=== PATIENT | male | born 1955 | race African-American/Black ===

== ENCOUNTER 2017-10-08 09:31 | Outpatient (CLI) | payer OTHER ==
--- NOTE | 2017-10-08 12:23 | RAD ---
BARIUM SWALLOW: Date: 10-08-17 History: Dysphagia. FINDINGS: There is a mild area of relative narrowing of the distal esophagus at the level of the gastroesophage al junction. There is mild esophageal dilatation proximal to this. However, when the patient ingested a barium tablet it promptly traverses this region. Mild distal tertiary contractions are noted. There is prominent gastroesophageal reflux elicited during this examination, which extended from the proximal to the proximal esophagus at the level of the thoracic inlet. Technical Support Professional imaging demonstrates post-operative hardware overlying the cervical spine and bilateral shoulde rs. No radiographic evidence of acute cardiopulmonary disease. IMPRESSION: 1. Marked gastroesophageal reflux was seen extending from the stomach through the proximal thoracic e sophagus at the level of the thoracic inlet. 2. Mild persistent focal area of narrowing at the gastroesophageal junction suggests mild stricture. However, the barium tablet traverses this area without delay. 3. Scattered disc tertiary contractions. POS: [facility]
== END 2017-10-08 09:32 | disposition home or self-care (01) ==
LOC: RAD 09:31
PROVIDERS: ATTEND Internal Medicine Gastroenterology
DX: R07.9 Chest pain, unspecified (principal); R13.10 Dysphagia, unspecified; K21.9 Gastro-esophageal reflux disease without esophagitis; K22.8 Other specified diseases of esophagus
CPT/HCPCS: 74220

== ENCOUNTER 2018-12-02 08:18 | Outpatient (CLI) | payer OTHER ==
--- NOTE | 2018-12-02 09:33 | MRI ---
MRI LEFT ANKLE: DATE: 12/02/2018. PROVIDED CLINICAL HISTORY: Pain status post injury. FINDINGS: The anterior extensor, medial flexor, perineal, and Achilles tendons demonstrate an intact MR appeara nce. There is increased signal intensity on fluid-sensitive sequences and thickening involving the superfi cial and deep components of the deltoid ligament, compatible with partial tearing. The lateral ankle ligaments appear intact. No focal tibiotalar articular cartilage defect is apparent. Advanced talonavicular degenerative change is seen with prominent osteophyte formation, joint effusio n, and subcortical cyst formation and marrow edema. The middle and posterior subtalar joints appear unremarkable. There is preservation of the majority of the fat signal intensity within the tarsal si nus. The plantar aponeurosis appears unremarkable. The courses of the regional major neurovascular structures appear unremarkable. No focal concerning regional marrow or muscular signal abnormality is evident. IMPRESSION: 1. Partial tearing involving a deltoid ligament. 2. Advanced talonavicular degenerative change. POS: [facility]
== END 2018-12-02 08:19 | disposition home or self-care (01) ==
LOC: MRI 08:18
PROVIDERS: ATTEND Nurse Practitioner Family
DX: S99.912A Unspecified injury of left ankle, initial encounter (principal); S93.402A Sprain of unspecified ligament of left ankle, initial encounter; M19.072 Primary osteoarthritis, left ankle and foot

== ENCOUNTER 2019-04-23 08:26 | Outpatient (CLI) | payer OTHER ==
[2019-04-23 10:00] LABS: #Basophils 0.1 thou/uL (0.0-0.2); #Eosinphils 0.1 thou/uL (0.0-0.7); #Lymphocytes 1.8 thou/uL (1.20-3.40); #Monocytes 0.9 thou/uL (0.11-0.59); #Neutrophils 6.1 thou/uL (1.40-6.50); %Basophils 0.6 % (0.0-1.0); %Eosinophils 1.2 % (0.0-10.0); %Lymphocytes 19.5 % (21.0-51.0); %Monocytes 10.4 % (0.0-10.0); %Neutrophils 68.3 % (42.0-75.0); Hemoglobin 14.8 g/dL (14.0-18.0); Mean Corpuscular HGB CONC 33.4 g/dL (32.0-36.0); Mean Corpuscular Hemoglobin 29.2 pg (27.0-31.0); Mean Corpuscular Volume 87.5 fL (78.0-98.0); Mean Platelet Volume 9.3 fL (7.4-10.4); Platelet Count 191 thou/uL (130-400); RBC Distribution Width 13.1 % (11.5-14.5); Red Blood Cell (RBC) Count 5.07 mill/uL (4.70-6.10)
[2019-04-23 10:05] LABS: INR-International Normal Ratio 1.1; PTT 30.5 SEC (22.9-36.1); Prothrombin Time 13.7 SEC (12.0-14.7)
[2019-04-23 10:19] LABS: ALT (SGPT) 37 U/L (8-55); AST (SGOT) 25 U/L (5-34); Albumin 4.5 g/dL (3.4-4.8); Alkaline Phosphatase 80 U/L (40-110); Anion Gap 12 mmol/L (10-20); BUN (Urea Nitrogen) 14 mg/dL (8.4-25.7); Bilirubin, Total 0.7 mg/dL (0.2-1.2); Calc. Creatinine Clearance 0 mL/min (70-130); Calcium 9.5 mg/dL (7.8-10.44); Carbon Dioxide 28 mmol/L (23-31); Chloride 103 mmol/L (98-107); Estimated GFR-MDRD Greater than 90; Globulin 3.1 g/dL (2.4-3.5); Glucose 83 mg/dL (80-115); Potassium 4.4 mmol/L (3.5-5.1); Protein, Total 7.6 g/dL (5.8-8.1); Sodium 139 mmol/L (136-145)
== END 2019-04-23 08:27 | disposition home or self-care (01) ==
LOC: LABBT 08:26
PROVIDERS: ATTEND Internal Medicine Cardiovascular Disease
DX: Z01.812 Encounter for preprocedural laboratory examination (principal)
CPT/HCPCS: 80053; 85025; 85610; 85730

== ENCOUNTER 2019-04-28 08:21 | Day surgery (SDC) | payer OTHER ==
[2019-04-23 09:19] VITALS: BMI 32.2
== END 2019-04-28 13:55 | disposition home or self-care (01) ==
LOC: CCL 08:21
PROVIDERS: ATTEND Internal Medicine Cardiovascular Disease
PROC: B2111ZZ Fluoroscopy of Multiple Coronary Arteries using Low Osmolar Contrast (ICD-10-PCS; principal; 2019-04-28)
PROC: 4A023N7 Measurement of Cardiac Sampling and Pressure, Left Heart, Percutaneous Approach (ICD-10-PCS; principal; 2019-04-28)
DX: R07.9 Chest pain, unspecified (principal); E78.00 Pure hypercholesterolemia, unspecified; I10 Essential (primary) hypertension; Z88.0 Allergy status to penicillin; Z91.013 Allergy to seafood
CPT/HCPCS: 76942; 93458; 99152; 99153

== ENCOUNTER 2019-04-29 05:48 | Inpatient (IN) | payer OTHER ==
[2019-04-29] MEDS ORDERED: Lidocaine 1% (PF) 30 ML VIAL ONE (07:00)
[2019-04-29] MEDS ORDERED: Fentanyl 100 MCG/2 ML VIAL ONE (07:30)
[2019-04-29] MEDS ORDERED: Midazolam HCl 2 mg/2 ml Vial ONE (07:30)
[2019-04-29] MEDS ORDERED: Nitroglycerin 100MG/250ML BOT 250 ML ONE (07:49)
[2019-04-29] MEDS ORDERED: Nitroglycerin 2% Ointment 1 INCH/1 GM Packet ONE (08:44)
[2019-04-29] MEDS ORDERED: Zolpidem Tartrate 5 MG TAB PO PRN (17:36)
[2019-04-29] MEDS ORDERED: Acetaminophen 325 MG TAB PO PRN (17:36)
[2019-04-29] MEDS ORDERED: Communication Order-Pharmacy FS PRN (17:36)
--- NOTE | 2019-04-29 18:28 | RAD ---
Exam: Chest one view HISTORY:Presurgical evaluation Comparison: None FINDINGS: Lungs: No masses or consolidation. Cardiac silhouette: Normal size Pulmonary vessels: Normal Pleural Spaces: Clear Pneumothorax: None Osseous abnormalities: None of acuity. IMPRESSION: No focal consolidation.
[2019-04-29] MEDS ORDERED: Rosuvastatin 20 MG TAB PO SCH (21:00)
[2019-04-29] MEDS ORDERED: Nitroglycerin 2% Ointment 1 INCH/1 GM Packet TOP SCH (21:00)
--- NOTE | 2019-04-30 00:35 | CON ---
DATE OF CONSULTATION: HISTORY OF PRESENT ILLNESS: This is a pleasant 64-year-old gentleman who works for [employer] as well as [employer], who has been reporting some pressure in the center of his chest with activity that will resolve with rest. He also relates that it occasionally occurs when he is at rest. He also reports some pain that occasionally goes down his left arm and occasionally his right arm. He had a stress test that was equivocal; however, due to strong family history and symptoms suspicious for angina, he underwent cardiac catheterization today showing about a 75% to 80% ostial right coronary stenosis, 40% to 60% distal left main narrowing extending into the proximal circumflex and LAD. There was a small bifurcated ramus branch that appeared to have disease. Left ventricular systolic function was normal. PAST MEDICAL HISTORY: Includes hypertension and mild dyslipidemia with recent adjustment in cholesterol medicines. PAST SURGICAL HISTORY: Includes a cervical spine surgery, bilateral shoulder surgery, left ankle and left knee surgeries. SOCIAL HISTORY: . 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 ALLERGIES: TO SHELLFISH. PHYSICAL EXAMINATION: GENERAL: He is an alert, cooperative gentleman. VITAL SIGNS: Recorded weight of 188 pounds, height of 5 feet 4 inches. NECK: No carotid bruits. LUNGS: Clear to auscultation. CARDIAC: Soft systolic murmur, right upper sternal border. ABDOMEN: Obese, nontender. EXTREMITIES: Multiple scars on his left lower leg with no edema and palpable dorsalis pedis pulses bilaterally. He is left arm dominant with a good Carlos test in the right wrist. PLAN: Plan at this time is for triple-vessel bypass grafting and informed consent has been obtained. Job ID: [id number] [facility]
[2019-04-30] MEDS ORDERED: CEFAZOLIN 2 GM in Premix Bag 1 BAG IVPB SCH (05:15)
[2019-04-30] MEDS ORDERED: Midazolam HCl 2 mg/2 ml Vial ONE (06:31)
[2019-04-30] MEDS ORDERED: Fentanyl 100 MCG/2 ML VIAL ONE (06:31)
[2019-04-30] MEDS ORDERED: Vecuronium 10 MG VIAL ONE ×2 (06:32→13:15)
[2019-04-30] MEDS ORDERED: Dexmedetomidine 200 MCG/2 ML VIAL ONE (06:32)
[2019-04-30] MEDS ORDERED: Midazolam HCl 5 mg/5 ml Vial ONE (06:32)
[2019-04-30] MEDS ORDERED: Heparin 10,000 UNITS/1 ML VIAL 30,000 UNITS in Sodium Chloride 0.9% 1,000 ML FS SCH (07:00)
[2019-04-30] MEDS ORDERED: Albumin 5% 500 ML ONE (07:01)
[2019-04-30] MEDS ORDERED: Levofloxacin 500 mg/D5W 100 ml Premix Bag ONE (07:10)
[2019-04-30] MEDS ORDERED: Clindamycin/D5W 900 mg/50 ml Premix Bag ONE (07:11)
[2019-04-30] MEDS ORDERED: Clindamycin/D5W 900 MG in Premix Bag 1 BAG IVPB SCH (07:30)
[2019-04-30] MEDS ORDERED: Aspirin 81 mg Enteric Coated Tablet PO SCH (09:00)
[2019-04-30] MEDS ORDERED: Heparin 10,000 UNITS/1 ML VIAL ONE (09:16)
[2019-04-30] MEDS ORDERED: PHENYLEPHRINE-NS 100 MCG/ML 10 ML SYRINGE ONE ×2 (09:16→13:15)
[2019-04-30] MEDS ORDERED: Bivalirudin 250 MG VIAL ONE (09:54)
[2019-04-30 12:41] LABS: Actual Bicarbonate (HCO3a) 23.4 mEq/L (22-28); Base Excess (BEa) -2.7 mEq/L (-2.0 to +3.0); CO2 Tension 45.9 mmHg (35.0-45.0); Calcium, Ionized 1.12 mmol/L (1.12-1.30); Carboxyhemoglobin (COHb) 0.3 gm% (0.0-3.0); Hemoglobin (Hb) 11.8 g/dL (14.0-18.0); Potassium - ABG Lab 3.81 mmol/L (3.70-5.30); pH, Arterial 7.33 (7.35-7.45)
[2019-04-30 12:44] LABS: Puncture Site ALINE
[2019-04-30] MEDS ORDERED: Promethazine HCl 25 MG/ML VIAL IM PRN (12:58)
[2019-04-30] MEDS ORDERED: Norepinephrine 8 MG/0.9% NS 250 ML IVPB PRN (12:58)
[2019-04-30] MEDS ORDERED: Post-Op Insulin Drip Protocol IVPB ONE (12:58)
[2019-04-30] MEDS ORDERED: Ondansetron PF 4 MG/2 ML Vial IVP PRN (12:58)
[2019-04-30] MEDS ORDERED: hydrALAZINE 20 MG/ML VIAL SLOW IVP PRN (12:58)
[2019-04-30] MEDS ORDERED: Guaifenesin DM 100-10/5 ML UDCUP PO PRN (12:58)
[2019-04-30] MEDS ORDERED: Magnesium 2 GM/50 ML 2 GM in Premix Bag 1 BAG IVPB SCH (12:58)
[2019-04-30] MEDS ORDERED: Mag-Al 1200 mg/1200 mg/30 ML UDCUP PO PRN (12:58)
[2019-04-30] MEDS ORDERED: Acetaminophen 325 MG TAB PO PRN (12:58)
[2019-04-30] MEDS ORDERED: Nitroglycerin 50 MG/250 ML BOT 250 ML IVPB PRN (12:58)
[2019-04-30] MEDS ORDERED: Hetastarch 6% 500 ML 500 ML IVPB PRN (12:58)
[2019-04-30] MEDS ORDERED: niCARdipine 25 MG in Sodium Chloride 0.9% 250 ML 240 ML IVPB PRN (12:58)
[2019-04-30] MEDS ORDERED: Morphine 2 MG/ML SYRINGE SLOW IVP PRN (12:58)
[2019-04-30] MEDS ORDERED: Bisacodyl 10 MG SUPP PR PRN (12:58)
[2019-04-30] MEDS ORDERED: DOPamine 400 MG/D5W 250 ML 250 ML IVPB PRN (12:58)
[2019-04-30] MEDS ORDERED: Fentanyl 100 MCG/2 ML VIAL SLOW IVP PRN ×2 (12:58)
[2019-04-30 13:14] LABS: #Basophils 0.1 thou/uL (0.0-0.2); #Eosinphils 0.1 thou/uL (0.0-0.7); #Lymphocytes 1.3 thou/uL (1.20-3.40); #Monocytes 1.1 thou/uL (0.11-0.59); #Neutrophils 16.1 thou/uL (1.40-6.50); %Basophils 0.3 % (0.0-1.0); %Eosinophils 0.3 % (0.0-10.0); %Lymphocytes 6.7 % (21.0-51.0); %Monocytes 5.7 % (0.0-10.0); %Neutrophils 86.9 % (42.0-75.0); Hemoglobin 11.3 g/dL (14.0-18.0); Mean Corpuscular HGB CONC 32.7 g/dL (32.0-36.0); Mean Corpuscular Hemoglobin 28.7 pg (27.0-31.0); Mean Corpuscular Volume 87.9 fL (78.0-98.0); Mean Platelet Volume 8.9 fL (7.4-10.4); Platelet Count 121 thou/uL (130-400); Red Blood Cell (RBC) Count 3.93 mill/uL (4.70-6.10); White Blood Cell (WBC) Count 18.5 thou/uL (4.8-10.8)
[2019-04-30] MEDS ORDERED: Ketorolac Tromethamine 30 MG/ML VIAL ONE (13:15)
[2019-04-30] MEDS ORDERED: Papaverine 60 MG/2 ML VIAL ONE (13:15)
[2019-04-30] MEDS ORDERED: Sodium Bicarb 50 MEQ/50 ML VIAL ONE (13:15)
[2019-04-30] MEDS ORDERED: Cardioplegic Soln 1,000 ML BAG ONE (13:15)
[2019-04-30] MEDS ORDERED: Magnesium 5 GM/10 ML VIAL ONE (13:15)
[2019-04-30] MEDS ORDERED: Calcium Chloride 1 GM/10 ML Abboject SYRINGE ONE (13:15)
[2019-04-30] MEDS ORDERED: Protamine Sulfate 250 MG/25 ML VIAL ONE (13:15)
[2019-04-30] MEDS ORDERED: Dexamethasone 20 MG/5 ML VIAL ONE (13:15)
[2019-04-30] MEDS ORDERED: Potassium Chloride 60 MEQ/30 ML VIAL ONE (13:15)
[2019-04-30] MEDS ORDERED: ePHEDrine 50 MG/ML VIAL ONE (13:15)
[2019-04-30] MEDS ORDERED: Heparin 30,000 units/30 ml VIAL ONE (13:15)
[2019-04-30] MEDS ORDERED: Heparin 5,000 UNITS/ML VIAL ONE (13:15)
[2019-04-30] MEDS ORDERED: Aminocaproic Acid 5 GM/20 ML VIAL ONE (13:15)
[2019-04-30] MEDS ORDERED: Nitroglycerin 50 MG/250 ML BOT ONE (13:15)
[2019-04-30] MEDS ORDERED: Mannitol 12.5 GM/50 ML ONE (13:15)
[2019-04-30] MEDS ORDERED: Glycopyrrolate 0.2 MG/ML 5 ML SYRINGE ONE (13:15)
[2019-04-30] MEDS ORDERED: Thrombin 5000 UNITS/5 ML VIAL ONE (13:15)
[2019-04-30] MEDS ORDERED: Ondansetron PF 4 MG/2 ML Vial ONE (13:15)
--- NOTE | 2019-04-30 13:17 | RAD ---
RADIOGRAPH CHEST 1 VIEW: DATE: 04/30/2019 TIME: 12:40 PM HISTORY: 64-year-old male status post open heart surgery COMPARISON: 04/29/2019 FINDINGS: Lung volumes are much lower now. New sternotomy wires. New double media and chest tubes, one with dis david portion overlying left upper lung zone. New right subclavian central line distal tip overlying right atrium. Retrocardiac left lower lobe atelectasis. Left perihilar haziness. Right lung clear. No pneumothorax. No pulmonary edema. IMPRESSION: Immediately status post coronary artery bypass graft surgery.
[2019-04-30 13:24] LABS: INR-International Normal Ratio 1.6; PTT 31.9 SEC (22.9-36.1); Prothrombin Time 19.1 SEC (12.0-14.7)
[2019-04-30] MEDS ORDERED: HUMULIN R 100 UNITS in Sodium Chloride 0.9% 100 ML IVPB SCH (13:32)
[2019-04-30] MEDS ORDERED: Dextrose 50% Abboject 50 ML SYRINGE SLOW IVP PRN (13:32)
[2019-04-30] MEDS ORDERED: Dextrose 5% in Water 1,000 ML IV PRN (13:32)
[2019-04-30 13:35] LABS: Anion Gap 11 mmol/L (10-20); BUN (Urea Nitrogen) 11 mg/dL (8.4-25.7); Calc. Creatinine Clearance 127 mL/min (70-130); Calcium 7.8 mg/dL (7.8-10.44); Carbon Dioxide 23 mmol/L (23-31); Chloride 107 mmol/L (98-107); Estimated GFR-MDRD Greater than 90; Glucose 126 mg/dL (80-115); Potassium 3.9 mmol/L (3.5-5.1); Sodium 137 mmol/L (136-145)
[2019-04-30] MEDS: Lactated Ringer's 1,000 ML IV SCH (13:44)
[2019-04-30] MEDS: Potassium Chloride 20 MEQ/100 ML PREMIX BAG IVPB PRN (13:44)
[2019-04-30] MEDS: Ketorolac Tromethamine 30 MG/ML VIAL IVP SCH ×3 (13:46→23:45)
[2019-04-30] MEDS: Insulin Regular 300 UNITS/3 ML VIAL SC PRN ×2 (13:52→17:14)
[2019-04-30] MEDS: Clindamycin/D5W 900 MG in Premix Bag 1 BAG IVPB SCH ×2 (14:02→20:30)
--- NOTE | 2019-04-30 14:37 | CON ---
DATE OF CONSULTATION: 04/30/2019 REASON FOR CONSULTATION: Difficult Childers catheter placement, history of urethral stricture. PRIMARY UROLOGIST: Dr. Freeman. HISTORY OF PRESENT ILLNESS: Mr. Trejo is a 64-year-old male currently on the operating room table about to undergo cardiac cath by Dr. Newby. Catheter attempt was placed by nursing staff, however, unable to pass with tiny amounts of blood with catheter placement. Dr. Newby was unable to pass a subsequent Childers. Therefore , urologic consultation was obtained. His chart reviewed, as he is currently intubated. patient followed by Dr. Freeman, he underwent prior urethral stricture dilatation, found to have unremarkable bladder, moderate BPH. Underwent DVIU with laser. Currently, the patient about to undergo cardiac cath. PAST MEDICAL HISTORY: Hypertension and dyslipidemia. PAST SURGICAL HISTORY: Cysto DVIU by Dr. Freeman, T-spine surgery, bilateral shoulder surgery, left ankle and left knee surgery. 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 ALLERGIES: ALLERGIC TO SHELLFISH AND AMOXICILLIN. MEDICATIONS: Include clindamycin and cefazolin. He was provided Levaquin, Nitro-Bid, Crestor, and Ambien. PHYSICAL EXAMINATION: VITAL SIGNS: Stable. GENERAL: The patient currently intubated. ABDOMEN: Soft, nontender, and nondistended. : Uncircumcised. Testes are descended, otherwise unremarkable. He is currently prepped and draped. As he has a history of urethral stricture, inability of Childers catheter placement by nursing staff, I did perform a flexible cystoscopy at bedside. DESCRIPTION OF PROCEDURE: The patient's genital area was formally prepped and draped. Flexible cystoscope was passed. There was some irritation of the proximal penile urethra, likely due to recent Childers catheter attempt. There was no gross stricture recurrence per se; however, some irritative changes at the proximal penile urethra, likely at the area of prior stricture. Prostatic urethra demonstrates bilobar hyperplasia moderately obstructing with no evidence of intravesical lobe. The bladder was grossly unremarkable. A 0.35 Sensor wire was placed to the level of the bladder, and an 18-Uzbek Oneida Tip Childers catheter was placed without significant issues. 10 mL of sterile water insufflated. Attached to gravity bag. Case turned over to Dr. Newby to undergo cardiac cath likely CABG. IMPRESSION AND PLAN: 1. Mr. Trejo is a 64-year-old male with hypercholesterolemia, hypertension, coronary artery disease, undergoing cardiac cath. 2. History of urethral stricture, followed by Dr. Freeman. Cystoscopy performed due to inability to place Childers catheter, catheter placed without difficulty over guidewire assist. Recommend Flomax, when he is tolerating p.o. The patient can follow up with Dr. Freeman at a later date for a voiding trial. will follow while in house. Job ID: [id number] [facility]
--- NOTE | 2019-04-30 15:21 | OP ---
DATE OF PROCEDURE: 04/30/2019 PREOPERATIVE DIAGNOSIS: Coronary artery disease. POSTOPERATIVE DIAGNOSIS: Coronary artery disease. PROCEDURES PERFORMED: Coronary artery bypass graft x4; left internal mammary artery good quality to a 2.5 mm left anterior descending artery, saphenous vein small quality to a 1.5 mm distal obtuse marginal and a 1.5 mm ramus and slightly better saphenous vein graft to a 2 mm to 2.5 mm mid right coronary artery. SURPLUS PROPERTY DISPOSAL AGENT: Lex. TRANSFUSION: None. DESCRIPTION OF PROCEDURE: After adequate anesthesia had been obtained, Dr. Turner, placed a Childers catheter with a cystoscope after we were unable to pass the Childers catheter. Following this, saphenous vein was marked with ultrasound. A central line was placed and the patient was prepped and draped. I then did an endovascular vein harvest of the left greater saphenous vein. Following which, I performed a median sternotomy. Left internal mammary artery was harvested. The patient was heparinized. The mammary divided distally and treated with papaverine. Following completion of this, the aorta and right atrium were cannulated. It should be noted that the right ventricle immediately was adjacent to the posterior sternal table and at the completion of procedure even using small Oliverio drains, there was minimal space in his chest with the heart being immediately adjacent to the sternum. After instituting cardiopulmonary bypass, vessels were inspected for grafting. The aorta was cross-clamped and after a liter of cold [place] cardioplegic solution. Four distal anastomosis were completed. Following this, the cross-clamp was removed and the partial occluding clamp placed in the right coronary and the distal OM grafts were anastomosed to the aortic root and marked with rings. The partial occluding clamp was removed and the diagonal ramus vein graft was then anastomosed to the side of the OM vein graft about 3 cm from the aortic root. Following completion of this, the patient was weaned from cardiopulmonary bypass. Cannula was removed and protamine was given systemically. The sternum was then reapproximated over a mediastinal and left pleural drain using #7 interrupted wire with vancomycin paste on the sternal edges, platelet rich blood and platelet poor plasma. Subcutaneous tissue and skin were closed in layers. Job ID: [id number]
[2019-04-30 17:07] LABS: Hemoglobin 11.5 g/dL (14.0-18.0)
[2019-04-30 17:53] LABS: Potassium 4.3 mmol/L (3.5-5.1)
[2019-04-30] MEDS: Famotidine/PF 20 mg/2ml Vial SLOW IVP SCH (20:30)
[2019-04-30] MEDS: HYDROcodone/Acetaminophen 5/325 mg Tablet PO PRN (23:41)
[2019-05-01] MEDS: Clindamycin/D5W 900 MG in Premix Bag 1 BAG IVPB SCH ×2 (02:50→08:08)
[2019-05-01] MEDS: Lactated Ringer's 1,000 ML IV SCH (03:32)
[2019-05-01] MEDS: HYDROcodone/Acetaminophen 5/325 mg Tablet PO PRN ×4 (03:37→23:55)
[2019-05-01 04:49] LABS: %Eosinophils 0.1 % (0.0-10.0); %Lymphocytes 10.8 % (21.0-51.0); %Monocytes 11.6 % (0.0-10.0); %Neutrophils 77.5 % (42.0-75.0); Hemoglobin 10.5 g/dL (14.0-18.0); Mean Corpuscular HGB CONC 33.8 g/dL (32.0-36.0); Mean Corpuscular Hemoglobin 29.5 pg (27.0-31.0); Mean Corpuscular Volume 87.3 fL (78.0-98.0); Mean Platelet Volume 9.1 fL (7.4-10.4); Platelet Count 124 thou/uL (130-400); RBC Distribution Width 12.9 % (11.5-14.5); Red Blood Cell (RBC) Count 3.56 mill/uL (4.70-6.10)
[2019-05-01 05:15] LABS: Anion Gap 12 mmol/L (10-20); BUN (Urea Nitrogen) 15 mg/dL (8.4-25.7); Calc. Creatinine Clearance 125 mL/min (70-130); Calcium 7.4 mg/dL (7.8-10.44); Carbon Dioxide 23 mmol/L (23-31); Chloride 109 mmol/L (98-107); Estimated GFR-MDRD Greater than 90; Glucose 99 mg/dL (80-115); Potassium 3.9 mmol/L (3.5-5.1); Sodium 140 mmol/L (136-145)
[2019-05-01] MEDS: Ketorolac Tromethamine 30 MG/ML VIAL IVP SCH ×4 (05:48→23:55)
[2019-05-01 06:35] VITALS: BMI 32.1
[2019-05-01] MEDS: Famotidine/PF 20 mg/2ml Vial SLOW IVP SCH (08:08)
[2019-05-01] MEDS: Potassium Chloride 20 MEQ/100 ML PREMIX BAG IVPB PRN (08:08)
[2019-05-01] MEDS: Aspirin 325 MG TAB PO SCH (08:09)
[2019-05-01] MEDS: Tamsulosin HCl 0.4 MG CAP PO SCH (08:09)
[2019-05-01] MEDS: Enoxaparin Sodium 40 MG/0.4 ML SYRINGE SC SCH (08:09)
[2019-05-01] MEDS: Rosuvastatin 20 MG TAB PO SCH (08:09)
[2019-05-01] MEDS: Polyethylene Glycol 3350 17 GM Packet PO SCH (09:00)
--- NOTE | 2019-05-01 10:30 | PRG ---
DATE OF SERVICE: 05/01/2019 SUBJECTIVE: The patient without complaints. OBJECTIVE: GENERAL: Alert, awake, and extubated. VITAL SIGNS: Stable. He is afebrile. Urine output 1780, clear. ABDOMEN: Soft, nontender, nondistended. PERTINENT LABORATORY DATA: White count 9, hemoglobin 10, INR 1.6. Creatinine 0.7. IMPRESSION AND PLAN: Mr. Trejo is a 64-year-old male status post cardiac catheterization, coronary artery bypass graft x4 by Dr. Newby, intraoperative consultation obtained due to inability to pass catheter. Bedside flexible cystoscopy performed. Catheter placed over guidewire assist. The patient followed by Dr. Freeman for history of urethral stricture and BPH. Continue indwelling Childers catheter for now, due to traumatic Childers catheter placement. there was no gross recurrent urethral stricture; however, some trauma to the distal penile urethra was seen with catheter likely the culprit of recurrent stricture. Flomax initiated due to history of BPH. will inform Dr. Freeman when he is back on service. Job ID: [id number] [facility]
--- NOTE | 2019-05-01 10:39 | RAD ---
PORTABLE SUPINE CHEST: HISTORY: Postop sternotomy. COMPARISON: 04/30/2019. FINDINGS: Central line unchanged. Postop sternotomy changes. Lungs appear aerated and clear of focal infiltra te. IMPRESSION: No acute lung process. POS: C
[2019-05-01] MEDS: Bisacodyl 5 MG TAB PO PRN (19:39)
[2019-05-02] MEDS: HYDROcodone/Acetaminophen 5/325 mg Tablet PO PRN ×2 (06:05→20:51)
[2019-05-02] MEDS: Ketorolac Tromethamine 30 MG/ML VIAL IVP SCH ×3 (06:06→17:12)
[2019-05-02 06:32] LABS: #Lymphocytes 1.2 thou/uL (1.20-3.40); #Monocytes 1.6 thou/uL (0.11-0.59); #Neutrophils 8.6 thou/uL (1.40-6.50); %Basophils 0.2 % (0.0-1.0); %Eosinophils 0.2 % (0.0-10.0); %Lymphocytes 10.4 % (21.0-51.0); %Monocytes 14.1 % (0.0-10.0); %Neutrophils 75.2 % (42.0-75.0); Hemoglobin 10.7 g/dL (14.0-18.0); Mean Corpuscular HGB CONC 33.6 g/dL (32.0-36.0); Mean Corpuscular Hemoglobin 29.3 pg (27.0-31.0); Mean Corpuscular Volume 87.2 fL (78.0-98.0); Mean Platelet Volume 9.1 fL (7.4-10.4); Platelet Count 126 thou/uL (130-400); Red Blood Cell (RBC) Count 3.65 mill/uL (4.70-6.10); White Blood Cell (WBC) Count 11.4 thou/uL (4.8-10.8)
[2019-05-02 06:55] LABS: Anion Gap 8 mmol/L (10-20); BUN (Urea Nitrogen) 14 mg/dL (8.4-25.7); Calc. Creatinine Clearance 128 mL/min (70-130); Calcium 7.7 mg/dL (7.8-10.44); Carbon Dioxide 26 mmol/L (23-31); Chloride 105 mmol/L (98-107); Estimated GFR-MDRD Greater than 90; Glucose 92 mg/dL (80-115); Potassium 3.8 mmol/L (3.5-5.1); Sodium 135 mmol/L (136-145)
[2019-05-02] MEDS: Aspirin 325 MG TAB PO SCH (08:06)
[2019-05-02] MEDS: Polyethylene Glycol 3350 17 GM Packet PO SCH (08:06)
[2019-05-02] MEDS: Enoxaparin Sodium 40 MG/0.4 ML SYRINGE SC SCH (08:06)
[2019-05-02] MEDS: Potassium Chloride 20 MEQ/100 ML PREMIX BAG IVPB PRN (08:07)
[2019-05-02] MEDS: Tamsulosin HCl 0.4 MG CAP PO SCH (08:07)
[2019-05-02] MEDS: Rosuvastatin 20 MG TAB PO SCH (08:07)
--- NOTE | 2019-05-02 10:28 | RAD ---
PORTABLE CHEST: HISTORY: Postop sternotomy. COMPARISON: 05/01/2019. FINDINGS/IMPRESSION: Some left mid and lower lung atelectasis or infiltrative changes. The right lung is clear. Heart is mildly enlarged with postop sternotomy change. Central line appears normally positioned. POS: C
[2019-05-02] MEDS: Bisacodyl 5 MG TAB PO PRN ×2 (10:38→20:52)
--- NOTE | 2019-05-02 11:56 | PRG ---
DATE OF SERVICE: 05/02/2019 SUBJECTIVE: The patient without complaints, doing well, transitioning to telemetry today. OBJECTIVE: VITAL SIGNS: Stable. He is afebrile. Urine output is marie yellow , 1100 out. ABDOMEN: Soft, nontender, nondistended. PERTINENT LABORATORY DATA: Creatinine 0.7. Hemoglobin 10. IMPRESSION AND PLAN: Mr. Trejo is a 64-year-old male, status post coronary artery bypass graft, postoperative day #2, intraoperative consultation obtained due to difficult Childers catheter placement. The patient with history of urethral stricture, followed by Dr. Freeman. Childers catheter placed over guidewire assist. History of benign prostatic hypertrophy, on Flomax. Continue indwelling Childers catheter. Dr. Freeman will return to service on Friday. will inform him regarding the patient's admission. Do not remove Childers unless it is initiated by . Job ID: [id number] [facility]
[2019-05-02] MEDS ORDERED: Milk Of Magnesia 30 ML UDCUP PO PRN (12:22)
[2019-05-02] MEDS ORDERED: Guaifenesin DM 100-10/5 ML UDCUP PO PRN (12:22)
[2019-05-02] MEDS ORDERED: Nitroglycerin 0.4 MG TAB (25 Tab Bottle) SL PRN (12:22)
[2019-05-02] MEDS ORDERED: Bisacodyl 5 MG TAB PO PRN (12:22)
[2019-05-02] MEDS ORDERED: Mag-Al 1200 mg/1200 mg/30 ML UDCUP PO PRN (12:22)
[2019-05-02] MEDS ORDERED: diphenhydrAMINE 25 MG CAP PO PRN (12:22)
[2019-05-02] MEDS ORDERED: Bisacodyl 10 MG SUPP PR PRN (12:22)
[2019-05-02] MEDS ORDERED: Mineral Oil ENEMA PR PRN (12:22)
[2019-05-02] MEDS ORDERED: Artificial Tears 18 DROP/0.9 ML EA EYE PRN (12:22)
[2019-05-02] MEDS: Zolpidem Tartrate 5 MG TAB PO PRN (20:52)
[2019-05-03] MEDS: Ketorolac Tromethamine 30 MG/ML VIAL IVP SCH ×2 (01:11→20:38)
--- NOTE | 2019-05-03 08:11 | PRG ---
DATE OF SERVICE: 05/03/2019 SUBJECTIVE: The patient without complaints. OBJECTIVE: VITAL SIGNS: Stable. Urine output clear, 1100 out. ABDOMEN: Soft, nontender, and nondistended. GENITOURINARY: Childers catheter demonstrating clear yellow urine. LABORATORY DATA: Creatinine 0.7. IMPRESSION AND PLAN: 1. Mr. Trejo is a pleasant 64-year-old male, postop day #3, status post coronary artery bypass grafting, intraoperative consultation due to difficult Childers catheter placement. Childers catheter placed over guidewire assist. 2. History of urethral stricture, followed by Dr. Freeman. 3. History of benign prostatic hyperplasia. Flomax initiated. Continue indwelling Childers catheter, do not remove unless initiated by . will inform the patient regarding the patient's admission as Dr. Freeman is off service until tomorrow. Job ID: [id number] [facility]
[2019-05-03] MEDS: Furosemide 40 MG TAB PO SCH (08:31)
[2019-05-03] MEDS: Potassium Chloride 10 MEQ TAB PO SCH (08:31)
[2019-05-03] MEDS: Hydrochlorothiazide 25 MG TAB PO SCH (08:33)
[2019-05-03] MEDS: Tamsulosin HCl 0.4 MG CAP PO SCH (08:33)
[2019-05-03] MEDS: HYDROcodone/Acetaminophen 5/325 mg Tablet PO PRN ×3 (08:34→23:26)
[2019-05-03] MEDS: Aspirin 325 MG TAB PO SCH (08:35)
[2019-05-03] MEDS: Rosuvastatin 20 MG TAB PO SCH (08:35)
[2019-05-03] MEDS: Enoxaparin Sodium 40 MG/0.4 ML SYRINGE SC SCH (08:35)
[2019-05-03] MEDS: Polyethylene Glycol 3350 17 GM Packet PO SCH (08:35)
[2019-05-03] MEDS ORDERED: Aspirin 325 mg Enteric Coated Tablet PO SCH (09:00)
[2019-05-03 14:32] LABS: Actual Bicarbonate (HCO3a) 23.2 mEq/L (22-28); Analyzer IN Cardio OR; Base Excess (BEa) -2.1 mEq/L (-2.0 to +3.0); Calcium, Ionized 1.07 mmol/L (1.12-1.30); Carboxyhemoglobin (COHb) 0.3 gm% (0.0-3.0); Hemoglobin (Hb) 10.9 g/dL (14.0-18.0); O2 Tension (PaO2) 498.1 mmHg (> 80.0); Potassium - ABG Lab 3.72 mmol/L (3.70-5.30); pH, Arterial 7.36 (7.35-7.45)
[2019-05-03 14:33] LABS: Actual Bicarbonate (HCO3v) 24 mEq/L (22-28); Analyzer IN Cardio OR; Base Excess -2.1 mEq/L (-2.0 to +3.0); Calcium, Ionized 0.97 mmol/L (1.16-1.32); Chloride (ABG LAB) 104 mmol/L (98-106); Hemoglobin (Hb) 9.5 g/dL (13.1-17.2); Potassium - ABG Lab 4.72 mmol/L (3.70-5.30); Sodium 135.9 mmol/L (133-146); pH (venous) 7.32 (7.32-7.43)
[2019-05-03 14:33] LABS: Actual Bicarbonate (HCO3a) 24.9 mEq/L (22-28); Analyzer IN Cardio OR; Base Excess (BEa) -0.9 mEq/L (-2.0 to +3.0); CO2 Tension 46.5 mmHg (35.0-45.0); Calcium, Ionized 0.98 mmol/L (1.12-1.30); Carboxyhemoglobin (COHb) 0.3 gm% (0.0-3.0); Hemoglobin (Hb) 9.4 g/dL (14.0-18.0); Potassium - ABG Lab 4.08 mmol/L (3.70-5.30); pH, Arterial 7.35 (7.35-7.45)
[2019-05-03 14:33] LABS: Actual Bicarbonate (HCO3a) 25.3 mEq/L (22-28); Base Excess (BEa) -0.6 mEq/L (-2.0 to +3.0); CO2 Tension 46.8 mmHg (35.0-45.0); Carboxyhemoglobin (COHb) 0.3 gm% (0.0-3.0); Hemoglobin (Hb) 10.3 g/dL (14.0-18.0); pH, Arterial 7.35 (7.35-7.45)
[2019-05-03 14:34] LABS: Actual Bicarbonate (HCO3a) 21.9 mEq/L (22-28); Analyzer IN Cardio OR; Base Excess (BEa) -0.3 mEq/L (-2.0 to +3.0); CO2 Tension 28.6 mmHg (35.0-45.0); Calcium, Ionized 1.06 mmol/L (1.12-1.30); Carboxyhemoglobin (COHb) 0.3 gm% (0.0-3.0); Hemoglobin (Hb) 12.3 g/dL (14.0-18.0); Potassium - ABG Lab 3.38 mmol/L (3.70-5.30)
[2019-05-03 14:34] LABS: Actual Bicarbonate (HCO3a) 22.9 mEq/L (22-28); Analyzer IN Cardio OR; Base Excess (BEa) -0.7 mEq/L (-2.0 to +3.0); CO2 Tension 34.6 mmHg (35.0-45.0); Calcium, Ionized 1.04 mmol/L (1.12-1.30); Carboxyhemoglobin (COHb) 0.3 gm% (0.0-3.0); Hemoglobin (Hb) 12.7 g/dL (14.0-18.0); O2 Tension (PaO2) 419.9 mmHg (> 80.0); Potassium - ABG Lab 3.49 mmol/L (3.70-5.30); pH, Arterial 7.44 (7.35-7.45)
[2019-05-03 14:34] LABS: Analyzer IN Cardio OR; Calcium, Ionized 0.97 mmol/L (1.12-1.30)
[2019-05-03 14:35] LABS: O2 Tension (PaO2) 533.3 mmHg (> 80.0); Puncture Site ALINE
[2019-05-03 14:36] LABS: Puncture Site ALINE
[2019-05-03 14:37] LABS: O2 Tension (PaO2) 532.3 mmHg (> 80.0); Puncture Site ALINE
[2019-05-03 14:38] LABS: Puncture Site ALINE
[2019-05-03] MEDS: Zolpidem Tartrate 5 MG TAB PO PRN (20:33)
--- NOTE | 2019-05-03 23:09 | EKG ---
Test Reason : POST CABG Blood Pressure : / mmHG Vent. Rate : 065 BPM Atrial Rate : 065 BPM P-R Int : 198 ms QRS Dur : 110 ms QT Int : 438 ms P-R-T Axes : 045 017 034 degrees QTc Int : 455 ms Normal sinus rhythm early repol Normal ECG When compared with ECG of 08-FEB-2013 08:12, QRS duration has increased Confirmed by LUCAS GORDON M.D. ([id number]) on 05/03/2019 11:09:12 PM Referred By: LEYDI Confirmed By:LUCAS GORDON M.D.
[2019-05-04] MEDS: HYDROcodone/Acetaminophen 5/325 mg Tablet PO PRN (04:32)
[2019-05-04] MEDS ORDERED: Metoprolol Tartrate 25 MG TAB PO SCH (09:00)
[2019-05-04] MEDS: Furosemide 40 MG TAB PO SCH (09:02)
[2019-05-04] MEDS: Potassium Chloride 10 MEQ TAB PO SCH (09:02)
[2019-05-04] MEDS: Hydrochlorothiazide 25 MG TAB PO SCH (09:03)
[2019-05-04] MEDS: Aspirin 325 MG TAB PO SCH (09:03)
[2019-05-04] MEDS: Polyethylene Glycol 3350 17 GM Packet PO SCH (09:04)
[2019-05-04] MEDS: Rosuvastatin 20 MG TAB PO SCH (09:04)
[2019-05-04] MEDS: Tamsulosin HCl 0.4 MG CAP PO SCH (09:05)
[2019-05-04] MEDS: Enoxaparin Sodium 40 MG/0.4 ML SYRINGE SC SCH (09:10)
[2019-05-04] MEDS ORDERED: Ketorolac Tromethamine 30 MG/ML VIAL IVP SCH (12:00)
--- NOTE | 2019-05-04 12:28 | PRG ---
DATE OF SERVICE: 05/04/2019 SUBJECTIVE: Mr. Trejo is having some chest discomfort. EKG yesterday afternoon looked like there was some element of pericarditis. He still has a Childers catheter in place. The patient otherwise has been doing well from a physical standpoint. OBJECTIVE: VITAL SIGNS: Blood pressure 122/76, pulse is 80 to 90 and it is regular. LUNGS: Clear. CARDIAC: Normal S1. Normal S2. ABDOMEN: Soft and nontender. EXTREMITIES: No edema. ASSESSMENT: 1. Status post bypass surgery. 2. EKG, yesterday, looked like some pericarditis postoperatively. PLAN: 1. Give him a dose of Toradol. 2. Repeat EKG. 3. Continue beta blockers, KATEY inhibitor, tamsulosin, and rosuvastatin. Job ID: [id number]
[2019-05-04] MEDS ORDERED: Ciprofloxacin 500 MG TAB PO SCH (12:45)
[2019-05-04] MEDS ORDERED: Ketorolac Tromethamine 30 MG/ML VIAL IVP PRN (19:03)
[2019-05-04] MEDS ORDERED: Bacteriostatic Water 30 ML VIAL FS PRN (19:05)
[2019-05-04] MEDS ORDERED: methylPREDNISolone Sod Succ 40 MG VIAL IVP SCH (19:15)
[2019-05-04] MEDS ORDERED: methylPREDNISolone Sod Succ/PF 125 MG/2 ML VIAL IVP SCH (19:15)
[2019-05-04] MEDS ORDERED: Famotidine 20 MG TAB PO SCH (19:30)
[2019-05-04] MEDS: Metoprolol Tartrate 25 MG TAB PO SCH (21:15)
--- NOTE | 2019-05-04 23:11 | PRG ---
DATE OF SERVICE: 05/04/2019 This is a 64-year-old male, I am seeing in room 256 today. He had coronary artery bypass graft four days ago. At that time, I was out of town and Dr. Turner saw him as catheter could not be easily placed and she ended doing a cysto and catheter placement at the start of the surgery. He has had a catheter since that time. His urine has been clear. He has a distant history of urethral stricture and had VIU done in the past by me. On talking with him today, he said he was not having any difficulty urinating prior to coming in to the hospital. On looking at Dr. Turner's notes, there was nothing that she found that described an obvious stricture or false passage. His urine today is currently clear. He is actually ready to go home with either catheter in or the catheter removed. I have talked with his nurse and recommended we remove his catheter today, make sure he voids once before going home. I am going to give him one dose of oral Cipro 500 mg as he has had a catheter in for few days and may have some colonization. I will arrange my office for him to be seen in 2 to 3 weeks to check his urine and a postvoid residual, make sure he is not having any difficulty urinating. Job ID: [id number]
[2019-05-05] MEDS ORDERED: traMADol HCl 50 MG TAB PO PRN (05:55)
--- NOTE | 2019-05-05 07:25 | PRG ---
DATE OF SERVICE: 05/04/2019 ADDENDUM: Mr. Trejo started having some recurrent chest pain this evening. It is more of a burning sensation occurred after he had something to eat. It does not hurt and worse with a deep breath. OBJECTIVE: VITAL SIGNS: Blood pressure 140/70, pulse 90. LUNGS: Clear. CARDIAC: Normal S1. Normal S2. The rhythm strip does show some ST elevation compatible with pericarditis. ASSESSMENT: Pericarditis postoperatively. PLAN: Continue anti-inflammatories. He also has some reflux symptoms, give him some Pepcid. Job ID: [id number]
--- NOTE | 2019-05-05 08:34 | DIS ---
DATE OF ADMISSION: 04/29/2019 DATE OF DISCHARGE: 05/05/2019 This is a 64-year-old gentleman, admitted post catheterization where he was found an ostial right coronary artery stenosis, 60% left main, and LAD and circumflex lesions. He was taken to the operating room on 04/30, where he underwent coronary artery bypass grafting, times unknown, because the records will not pull up at the time of this dictation. Postoperative course was uneventful. He had some mild resting tachycardia. He was started on metoprolol. He will be discharged to home on Flomax for urinary stricture that required Urology to place a Childers catheter, although the stricture did not appear to be severe on cystoscopy. He will also continue his home medicines of Crestor 20 a day and aspirin 81 a day. He will have a prescription for Flomax 0.4 a day, metoprolol 25 b.i.d., and tramadol for pain. Discharge and followup instructions have been given. Job ID: [id number]
[2019-05-05] MEDS ORDERED: methylPREDNISolone Sod Succ 40 MG VIAL IVP SCH (09:00)
[2019-05-05] MEDS ORDERED: Famotidine 20 MG TAB PO SCH (09:00)
[2019-05-05 09:14] LABS: #Eosinphils 0.1 thou/uL (0.0-0.7); #Lymphocytes 1.6 thou/uL (1.20-3.40); #Monocytes 1.2 thou/uL (0.11-0.59); #Neutrophils 8.4 thou/uL (1.40-6.50); %Eosinophils 1.1 % (0.0-10.0); %Lymphocytes 14.3 % (21.0-51.0); %Monocytes 10.7 % (0.0-10.0); %Neutrophils 73.8 % (42.0-75.0); Hemoglobin 11.7 g/dL (14.0-18.0); Mean Corpuscular HGB CONC 32.4 g/dL (32.0-36.0); Mean Corpuscular Hemoglobin 28.3 pg (27.0-31.0); Mean Corpuscular Volume 87.2 fL (78.0-98.0); Mean Platelet Volume 7.8 fL (7.4-10.4); Platelet Count 219 thou/uL (130-400); Red Blood Cell (RBC) Count 4.15 mill/uL (4.70-6.10); White Blood Cell (WBC) Count 11.4 thou/uL (4.8-10.8)
[2019-05-05 09:35] LABS: Anion Gap 12 mmol/L (10-20); BUN (Urea Nitrogen) 11 mg/dL (8.4-25.7); Calc. Creatinine Clearance 115 mL/min (70-130); Calcium 9.3 mg/dL (7.8-10.44); Carbon Dioxide 30 mmol/L (23-31); Chloride 98 mmol/L (98-107); Estimated GFR-MDRD Greater than 90; Glucose 131 mg/dL (80-115); Potassium 3.8 mmol/L (3.5-5.1); Sodium 136 mmol/L (136-145)
[2019-05-05] MEDS: Aspirin 325 MG TAB PO SCH (09:44)
[2019-05-05] MEDS: Enoxaparin Sodium 40 MG/0.4 ML SYRINGE SC SCH (09:44)
[2019-05-05] MEDS: Hydrochlorothiazide 25 MG TAB PO SCH (09:45)
[2019-05-05] MEDS: Polyethylene Glycol 3350 17 GM Packet PO SCH (09:46)
[2019-05-05] MEDS: Tamsulosin HCl 0.4 MG CAP PO SCH (09:46)
[2019-05-05] MEDS: Metoprolol Tartrate 25 MG TAB PO SCH (09:46)
[2019-05-05] MEDS: Rosuvastatin 20 MG TAB PO SCH (09:46)
[2019-05-05] MEDS ORDERED: Etodolac ER 400 mg Tablet PO SCH (12:00)
[2019-05-05 17:06] VITALS: BP 127/76; TEMP 98.9
--- NOTE | 2019-05-07 10:01 | EKG ---
Test Reason : Blood Pressure : / mmHG Vent. Rate : 103 BPM Atrial Rate : 103 BPM P-R Int : 132 ms QRS Dur : 090 ms QT Int : 334 ms P-R-T Axes : 040 032 043 degrees QTc Int : 437 ms Sinus tachycardia Possible Left atrial enlargement Acute pericarditis Abnormal ECG Confirmed by MIKIE BLANKENSHIP MD ([id number]) on 05/07/2019 10:01:29 AM Referred By: Confirmed By:MIKIE BLANKENSHIP MD
--- NOTE | 2019-05-07 10:09 | EKG ---
Test Reason : Blood Pressure : / mmHG Vent. Rate : 098 BPM Atrial Rate : 098 BPM P-R Int : 138 ms QRS Dur : 102 ms QT Int : 340 ms P-R-T Axes : 040 039 035 degrees QTc Int : 434 ms Normal sinus rhythm Acute pericarditis Nonspecific T wave abnormality Abnormal ECG When compared with ECG of 30-APR-2019 13:00, Vent. rate has increased BY [address] elevation now present in Inferior leads ST more elevated in Anterolateral leads Confirmed by MIKIE BLANKENSHIP MD ([id number]) on 05/07/2019 10:09:13 AM Referred By: PETER Confirmed By:MIKIE BLANKENSHIP MD
--- NOTE | 2019-05-07 10:11 | EKG ---
Test Reason : STAT Blood Pressure : / mmHG Vent. Rate : 098 BPM Atrial Rate : 098 BPM P-R Int : 140 ms QRS Dur : 098 ms QT Int : 348 ms P-R-T Axes : 040 028 036 degrees QTc Int : 444 ms Normal sinus rhythm Possible Left atrial enlargement Acute pericarditis Abnormal ECG When compared with ECG of 04-MAY-2019 12:12, (Unconfirmed) No significant change was found Confirmed by PATTIE OVALLE, MIKIE ([id number]) on 05/07/2019 10:10:22 AM Referred By: PETER Confirmed By:MIKIE BLANKENSHIP MD
== END 2019-05-05 15:20 | disposition home or self-care (01) | DRG 236 ==
LOC: CCL 05:48 → 2NO 08:00 → CCU 04-30 09:43 → 2NO 05-02 17:45
PROVIDERS: ADMIT Internal Medicine Cardiovascular Disease; ATTEND Internal Medicine Cardiovascular Disease
PROC: 02100Z9 Bypass Coronary Artery, One Artery from Left Internal Mammary, Open Approach (ICD-10-PCS; principal; 2019-04-30)
PROC: 021209W Bypass Coronary Artery, Three Arteries from Aorta with Autologous Venous Tissue, Open Approach (ICD-10-PCS; 2019-04-30)
PROC: 06BQ4ZZ Excision of Left Saphenous Vein, Percutaneous Endoscopic Approach (ICD-10-PCS; 2019-04-30)
PROC: 0T7B8ZZ Dilation of Bladder, Via Natural or Artificial Opening Endoscopic (ICD-10-PCS; 2019-04-30)
PROC: 5A1221Z Performance of Cardiac Output, Continuous (ICD-10-PCS; 2019-04-30)
DX: I25.10 Atherosclerotic heart disease of native coronary artery without angina pectoris (principal); I31.9 Disease of pericardium, unspecified; R00.0 Tachycardia, unspecified; I10 Essential (primary) hypertension; E78.5 Hyperlipidemia, unspecified; E78.00 Pure hypercholesterolemia, unspecified; N40.1 Benign prostatic hyperplasia with lower urinary tract symptoms; Z88.0 Allergy status to penicillin; Z91.013 Allergy to seafood; N35.919 Unspecified urethral stricture, male, unspecified site
CPT/HCPCS: 36415; 36416; 36430; 71045; 76942; 80048; 82805; 84484; 85025; 85610; 85730; 86850; 86900; 86901; 93005; 93010; 93458; 93798; 99152; 99153; C1769; J0583; J0690; J1265; J1642; J1644; J1650; J1815; J1885; J1956; J2001; J2250; J3010; J3475; J3480; J3490; P9045; Q9967; S0028

== ENCOUNTER 2019-05-09 07:10 | Emergency (ER) | payer OTHER ==
[2019-05-09 07:44] LABS: #Eosinphils 0.1 thou/uL (0.0-0.7); #Lymphocytes 1.5 thou/uL (1.20-3.40); #Monocytes 1.3 thou/uL (0.11-0.59); #Neutrophils 9.6 thou/uL (1.40-6.50); %Lymphocytes 11.9 % (21.0-51.0); %Monocytes 10.1 % (0.0-10.0); %Neutrophils 76.9 % (42.0-75.0); Hemoglobin 10.5 g/dL (14.0-18.0); Mean Corpuscular Volume 87.8 fL (78.0-98.0); Mean Platelet Volume 7.6 fL (7.4-10.4); Platelet Count 354 thou/uL (130-400); RBC Distribution Width 12.9 % (11.5-14.5); Red Blood Cell (RBC) Count 3.62 mill/uL (4.70-6.10); White Blood Cell (WBC) Count 12.4 thou/uL (4.8-10.8)
[2019-05-09 07:59] LABS: ALT (SGPT) 158 U/L (8-55); AST (SGOT) 69 U/L (5-34); Albumin 3.8 g/dL (3.4-4.8); Alkaline Phosphatase 112 U/L (40-110); Anion Gap 12 mmol/L (10-20); BUN (Urea Nitrogen) 12 mg/dL (8.4-25.7); Bilirubin, Total 0.6 mg/dL (0.2-1.2); Calc. Creatinine Clearance 0 mL/min (70-130); Calcium 9.1 mg/dL (7.8-10.44); Carbon Dioxide 32 mmol/L (23-31); Chloride 96 mmol/L (98-107); Estimated GFR-MDRD Greater than 90; Globulin 3.8 g/dL (2.4-3.5); Glucose 101 mg/dL (80-115); Potassium 4.3 mmol/L (3.5-5.1); Protein, Total 7.6 g/dL (5.8-8.1); Sodium 136 mmol/L (136-145)
[2019-05-09 08:22] LABS: CKMB 1.4 ng/mL (0-6.6)
--- NOTE | 2019-05-09 09:51 | RAD ---
PORTABLE CHEST 1 VIEW: Date: 05/09/19 Time: 0732 hours HISTORY: Chest pain. FINDINGS: Comparison made with exam of 05/02/19. Changes of median sternotomy again seen. Mediastinal drains and right subclavian central line have be en removed in the interim. The heart size is normal. The lungs are expanded without focal areas of co nsolidation, pneumothoraces, or pleural effusions. Postop changes of bilateral rotator cuff repair ar e again seen. IMPRESSION: No acute process. POS: [facility]
[2019-05-09] MEDS ORDERED: Aspirin Chewable 81 MG TAB ONE (09:53)
--- NOTE | 2019-05-09 09:59 | CT ---
CT PULMONARY ANGIOGRAM WITH IV CONTRAST AND 3D POSTPROCESSING: Date: 05/09/19 HISTORY: Chest pain. Status post CABG 8 days ago. FINDINGS: There is good contrast opacification of the pulmonary arterial vasculature without filling defects to suggest pulmonary embolism. The thoracic aorta is well opacified without aneurysm or dissection. A pericardial effusion is seen. There are small bilateral pleural effusions, left larger than right, with adjacent infiltrate/atelectatic changes. No pneumothoraces are seen. Degenerative changes are pr esent in the spine. There is a cyst in the posteromedial aspect of the right lobe of the liver. IMPRESSION: 1. No CT evidence of pulmonary embolism. 2. Pericardial and pleural effusions. POS: [facility]
[2019-05-09 10:51] LABS: Troponin I 0.076 ng/mL (< 0.028)
[2019-05-09] MEDS ORDERED: Ketorolac Tromethamine 30 MG/ML VIAL ONE (11:15)
[2019-05-09] MEDS ORDERED: ISOVUE-370 76%-LOCM 1 ML ONE (12:12)
== END 2019-05-09 11:24 | disposition home or self-care (01) ==
LOC: ERS 07:10
DX: T82.897A Other specified complication of cardiac prosthetic devices, implants and grafts, initial encounter (principal); I31.9 Disease of pericardium, unspecified; Z95.1 Presence of aortocoronary bypass graft; E78.00 Pure hypercholesterolemia, unspecified; K21.9 Gastro-esophageal reflux disease without esophagitis; E78.5 Hyperlipidemia, unspecified; I10 Essential (primary) hypertension; Z79.891 Long term (current) use of opiate analgesic; Z79.82 Long term (current) use of aspirin; Z79.899 Other long term (current) drug therapy
CPT/HCPCS: 36415; 71045; 71275; 80053; 82553; 84484; 85025; 93005; 96374; J1885; Q9966

== ENCOUNTER 2019-06-07 15:41 | Outpatient (CLI) | payer OTHER ==
--- NOTE | 2019-06-07 16:09 | RAD ---
EXAM: Two views chest PROVIDED CLINICAL HISTORY: Atherosclerosis of [place] coronary arteries. COMPARISON: 05/19/2019. FINDINGS: Postsurgical changes related to CABG are again noted. Cardiac silhouette and pulmonary vasculature ar e within normal limits. The lungs are clear on today's exam. There has been resolution of the left pleural effusion and associated atelectasis. Metallic density overlies the lower cervical spine likel y due to prior postsurgical changes. This was also present on chest x-ray of 05/02/2019. Mild degenerative changes are seen in the spine. IMPRESSION: No acute cardiopulmonary process.
== END 2019-06-07 15:42 | disposition home or self-care (01) ==
LOC: RAD 15:41
PROVIDERS: ATTEND Nurse Practitioner Family
DX: I25.10 Atherosclerotic heart disease of native coronary artery without angina pectoris (principal)
CPT/HCPCS: 71046

== ENCOUNTER 2019-11-09 08:17 | Emergency (ER) | payer OTHER ==
[2019-11-09] MEDS ORDERED: Ketorolac Tromethamine 30 MG/ML VIAL ONE (08:42)
[2019-11-09 08:49] LABS: #Eosinphils 0.1 thou/uL (0.0-0.7); #Lymphocytes 1.6 thou/uL (1.20-3.40); #Monocytes 0.6 thou/uL (0.11-0.59); #Neutrophils 3.7 thou/uL (1.40-6.50); %Basophils 0.5 % (0.0-1.0); %Eosinophils 1.8 % (0.0-10.0); %Lymphocytes 25.8 % (21.0-51.0); %Monocytes 10.6 % (0.0-10.0); %Neutrophils 61.4 % (42.0-75.0); Hemoglobin 14.1 g/dL (14.0-18.0); Mean Corpuscular HGB CONC 33.1 g/dL (32.0-36.0); Mean Corpuscular Hemoglobin 28.7 pg (27.0-31.0); Mean Corpuscular Volume 86.8 fL (78.0-98.0); Platelet Count 176 thou/uL (130-400); RBC Distribution Width 14.2 % (11.5-14.5); Red Blood Cell (RBC) Count 4.92 mill/uL (4.70-6.10)
[2019-11-09 09:14] LABS: ALT (SGPT) 36 U/L (8-55); AST (SGOT) 24 U/L (5-34); Albumin 4.1 g/dL (3.4-4.8); Alkaline Phosphatase 80 U/L (40-110); Anion Gap 11 mmol/L (10-20); BUN (Urea Nitrogen) 16 mg/dL (8.4-25.7); Bilirubin, Total 0.6 mg/dL (0.2-1.2); CK (CPK) 326 U/L (30-200); Calc. Creatinine Clearance 0 mL/min (70-130); Calcium 9.2 mg/dL (7.8-10.44); Carbon Dioxide 29 mmol/L (23-31); Chloride 102 mmol/L (98-107); Estimated GFR-MDRD Greater than 90; Globulin 3.1 g/dL (2.4-3.5); Glucose 86 mg/dL (80-115); Lipase 19 U/L (8-78); Potassium 3.7 mmol/L (3.5-5.1); Protein, Total 7.2 g/dL (5.8-8.1); Sodium 138 mmol/L (136-145)
--- NOTE | 2019-11-09 09:29 | RAD ---
PORTABLE CHEST 1 VIEW: DATE: 11/09/2019. TIME: 8:44 AM. History Chest pain, cough. COMPARISON: 06/07/2019. FINDINGS: Changes of median sternotomy are again seen. The heart size is normal. The aorta is tortuous. The lungs are expanded without lobar consolidation, pneumothoraces, or pleural effusions. There are post op changes of right rotator cuff repair. IMPRESSION: No radiographic evidence of acute cardiopulmonary process. POS: [facility]
--- NOTE | 2019-11-09 09:57 | CT ---
CT ANGIOGRAM THORAX WITH CONTRAST: (CTA pulmonary angiogram) DATE: 11/09/2019 HISTORY: 64-year-old male with dyspnea, chest pain, and cough TECHNIQUE: IV injection of iodinated contrast. Scan acquisition timing attempted to coincide with iodinated contrast bolus reaching maximal density in pulmonary arteries. 3-D MIP reconstructions. FINDINGS: Pulmonary thromboembolism: None. Lungs: Clear. Pneumothorax: None. Pleural effusion: None. Thoracic aorta: No aneurysm or dissection. Ectasia of ascending aorta. Tortuosity of descending aorta . Mediastinum: No lymphadenopathy or other mass. Valarie: No lymphadenopathy or other mass. Sternotomy wires. Trachea and major bronchi: Patent and clear. IMPRESSION: 1. No pulmonary thromboembolism. 2. No acute findings. 3. Status post coronary artery bypass graft surgery is evidence for coronary atherosclerotic disease. 4. Ectasia and tortuosity of thoracic aorta.
[2019-11-09] MEDS ORDERED: Iopamidol-370 76% 500 ML 1 ML ONE (11:58)
--- NOTE | 2019-11-10 14:24 | EKG ---
Test Reason : Blood Pressure : / mmHG Vent. Rate : 064 BPM Atrial Rate : 064 BPM P-R Int : 196 ms QRS Dur : 086 ms QT Int : 400 ms P-R-T Axes : 052 014 054 degrees QTc Int : 412 ms Normal sinus rhythm Possible Left atrial enlargement Borderline ECG Confirmed by ANGEL OVALLE, JEANE ([id number]), editor index RADHA LAWS ([id number]) on 11/10/2019 2:23:36 PM Referred By: Confirmed By:JEANE ORTIZ MD
== END 2019-11-09 10:12 | disposition home or self-care (01) ==
LOC: ERS 08:17
DX: R07.89 Other chest pain (principal); K21.9 Gastro-esophageal reflux disease without esophagitis; E78.5 Hyperlipidemia, unspecified; E78.00 Pure hypercholesterolemia, unspecified; I10 Essential (primary) hypertension; Z79.891 Long term (current) use of opiate analgesic; Z79.899 Other long term (current) drug therapy
CPT/HCPCS: 71045; 71275; 80053; 82550; 83690; 83880; 84484; 85025; 85379; 93005; 96374; J1885; Q9967

== ENCOUNTER 2021-04-11 08:19 | Outpatient (CLI) | payer OTHER | END 2021-04-11 08:20 | disposition home or self-care (01) | LOC: BICRAD 08:19 | PROVIDERS: ATTEND Internal Medicine Cardiovascular Disease | DX: R06.02 Shortness of breath (principal) | CPT/HCPCS: 71046 ==

== ENCOUNTER 2025-04-06 07:45 | Outpatient (CLI) | payer MEDICARE ==
[2025-04-06] MEDS ORDERED: Barium Sulfate 96% 176 GM BOT (xray ONLY) ONE (07:52)
[2025-04-06] MEDS ORDERED: E-Z-HD 98% W/W 340GM BOT (x-ray ONLY) ONE (07:52)
== END 2025-04-06 07:46 | disposition home or self-care (01) ==
LOC: RAD 07:45
PROVIDERS: ATTEND Internal Medicine Gastroenterology
DX: R13.10 Dysphagia, unspecified (principal); K21.9 Gastro-esophageal reflux disease without esophagitis
CPT/HCPCS: 74220

== ENCOUNTER 2025-05-23 09:37 | Outpatient (CLI) | payer MEDICARE | END 2025-05-23 09:38 | disposition home or self-care (01) | LOC: RAD 09:37 | PROVIDERS: ATTEND Internal Medicine Gastroenterology | DX: R13.10 Dysphagia, unspecified (principal); K21.9 Gastro-esophageal reflux disease without esophagitis; Z98.890 Other specified postprocedural states | CPT/HCPCS: 74230 ==

== ENCOUNTER 2025-06-06 13:33 | Outpatient (CLI) | payer MEDICARE | END 2025-06-06 13:34 | disposition home or self-care (01) | LOC: ULT 13:33 | PROVIDERS: ATTEND Internal Medicine Cardiovascular Disease | DX: R22.1 Localized swelling, mass and lump, neck (principal) | CPT/HCPCS: 76536 ==